=== PATIENT | male | born 1965 | race Caucasian/White ===

== ENCOUNTER → 2017-04-25 | Outpatient (CLI) | payer BC ==
[~2017-04-25] MED LIST: FLM4 PO; MULT-506 PO
== END | disposition home or self-care (01) ==
LOC: C.RDSM 09:00
PROVIDERS: ATTEND Orthopaedic Surgery Sports Medicine
DX: M25.562 Pain in left knee (principal)

== ENCOUNTER → 2017-04-30 | Outpatient (CLI) | payer BC ==
--- NOTE | 2017-04-30 15:10 | DIAGNOSTIC IMAGING REPORT ---
L LOWER EXT JOINT WITHOUT CLINICAL HISTORY: 51 years-old Male presenting with LEFT KNEE PAIN, locking sensation for 3 months, no known injury, medial and posterior knee pain. TECHNIQUE: Multisequence, multiplanar MR imaging of the left knee was performed without the use of intravenous contrast. IV contrast: None. COMPARISON: Plain radiographs from 04/25/2017. FINDINGS: Localizer images: Unremarkable. No bony edema. Articular cartilage intact. Anterior and posterior cruciate ligaments intact although there is redundancy of the posterior cruciate ligament. Linear intrasubstance signal within the posterior horn body junction of the medial meniscus which approaches the inferior articular surface consistent with tear, most likely degenerative type horizontal tear. The lateral meniscus demonstrates intrasubstance increased signal intensity without a focal tear. Medial collateral ligament intact. Lateral collateral ligament complex including the biceps femoris tendon, fibular collateral ligament, popliteus tendon, and iliotibial band intact. Quadriceps tendon intact. Minimal increased signal intensity within the origin of the patellar tendon without evidence of thickening or tear. This may be degenerative in etiology. Trace knee joint effusion. Popliteal cyst noted as well as fluid superficial to the lateral gastrocnemius. Normal muscle bulk and muscle signal intensity. IMPRESSION: 1. Degenerative type horizontal tear of the posterior horn body junction of the medial meniscus. 2. Fluid within the popliteal fossa associated with a popliteal cyst may indicate rupture. Electronically signed by: Ricardo Moser M.D. 04/30/2017 3:09 PM Dictated Date/Time: 04/30/2017 2:28 PM
== END | disposition home or self-care (01) ==
LOC: C.MRI 13:30
PROVIDERS: ATTEND Orthopaedic Surgery Sports Medicine
DX: M25.562 Pain in left knee (principal)

== ENCOUNTER → 2017-05-08 | Outpatient (CLI) | payer BC ==
[~2017-05-08] MED LIST changes: +MULTTAB58 PO
== END | disposition home or self-care (01) ==
LOC: C.CPL 16:53
PROVIDERS: ATTEND Physician Assistant
DX: M25.562 Pain in left knee (principal)

== ENCOUNTER → 2017-05-10 | Day surgery (SDC) | payer BC ==
[2017-05-08 09:17] VITALS: Ht 180.3 cm; Wt 95.5 kg
[~2017-05-10] VITALS: Ht 180.3 cm; Wt 95.5 kg
[~2017-05-10] MED LIST changes: +ATROPINE SULFATE 0.1 MG/ML 5ML SYR IV PRN; +BUPIVACAINE/EPINEPHRINE 0.5% MPF 1:200,000 30 ML VIAL ONE; +CEFAZOLIN 2000MG IV PUSH 10 ML IV SCH; +DEXAMETHASONE SOD INJ 4 MG/ML VIAL ONE; +EpHEDrine SULFATE INJ 50 MG/ML AMP IV PRN; +EpINEphrine HCL INJ 1 MG/ML 1ML SYRINGE ONE; +FENTANYL CITRATE INJ 50 MCG/1 ML 2 ML VIAL IV PRN; +FENTANYL CITRATE INJ 50 MCG/1 ML 2 ML VIAL ONE; -FLM4 PO; +HYDROmorphone INJ 1 MG/ML SYR IV PRN; +LACTATED RINGER'S 1000ML 1,000 ML IV SCH; +LIDOCAINE HCL 1% 20 ML VIAL ONE; +LIDOCAINE HCL 2% 2 ML VIAL (20MG/ML) ONE; +MIDAZOLAM HCL 1 MG/ML 2ML VIAL ONE; -MULT-506 PO; +MoRPHine SULFATE 2 MG/ML CARP IV PRN; +MoRPHine SULFATE 4 MG/ML 1 ML CARP\\VIAL IV PRN; +ONDANSETRON INJ 2 MG/ML 2 ML VIAL IV PRN; +ONDANSETRON INJ 2 MG/ML 2 ML VIAL ONE; +OXYCODONE/ACETAMINOPHEN 5-325 TAB PO PRN; +PROMETHAZINE HCL INJ 12.5 MG in SODIUM CHLORIDE 0.9% 50ML 50 ML IV PRN; +PROPOFOL IV EMULSION 10 MG/ML 20 ML VIAL IV ONE
--- NOTE | 2017-05-10 06:37 | History & Physical Bridge - [place] ---
H&P Re-Evaluation Bridge Note: I have examined the patient, reviewed the History & Physical and in the interval since the performance of the History & Physical I have noted the following changes of clinical significance: No changes noted
--- NOTE | 2017-05-10 08:16 | [facility] Operative Report ---
Operative Report Operative Date May 10, 2017. Pre-Operative Diagnosis Left knee medial meniscal tear with ruptured popliteal cyst Post-Operative Diagnosis Same as preop plus chondromalacia, lateral meniscus tear, and medial plica Procedure(s) Performed 1) Left Knee Arthroscopy, Chondroplasty: Trochlea & MFC with Partial Medial Meniscectomy. 2) Limited debridement: Medial Plicae & Anterior fat pad. 3) Partial Lateral Meniscectomy. 4) Exam Under Anesthesia Surgeon Dr. Maldonado Repair Cameraman Surgeon(s) None Estimated Blood Loss 2 mL Findings The left knee was examined under anesthesia. Range of motion was 0-130. Ligamentous examination exhibited: stable Sean, posterior drawer, varus and valgus stress at 0 & 30 degrees. ARTHROSCOPIC FINDINGS: There was significant synovitis in the fat pad. There was also a noted medial plica. 1) PATELLOFEMORAL JOINT: The articular cartilage of the Patella was intact and Trochlea had a 3 x 4 mm central area of grade 2 Outerbridge changes. 2) GUTTERS: No loose bodies. 3) MEDIAL COMPARTMENT: The articular cartilage of the femur had type II changes from 30-90 degrees and Tibia was intact. The medial meniscus had a complex degenerative tear at the apex as well as an undersurface posterior tear. 4) ACL/PCL: They were both visualized and probed to be intact. 5) LATERAL COMPARTMENT: The lateral compartment was then entered in a figure-of- four position. The femoral and tibial articular cartilage was normal. The lateral meniscus had a degenerative tear posteriorly to the apex. Fluids (cc crystalloids) 1300 Specimens None Drains n/a Anesthesia LMA Complication(s) None Disposition Recovery Room / PACU (Stable) Implants n/a Indications This is a 51-year-old male who has clinical and MRI findings consistent with meniscus tear. I recommended that a left knee arthroscopy be performed with meniscus repair vs debridement, possible chondroplasty versus microfracture. The patient understands the risks of surgery, which include but not limited to: bleeding, infection, re-operation, damage to nerves and arteries, continued knee pain, progression of OA, DVT, and a 2-5% risk of becoming worse after surgery. The patient understands all of these instructions and explanations, all of his questions have been satisfactorily addressed and the patient has elected to proceed. Informed consent was signed. Description of Procedure The patient was taken to the Operating Room and placed in the supine position after general anesthetic was administered. My initials and a multidisciplinary time-out were used to identify the left leg as the correct operative limb. Prior to the incision, 2 grams of intravenous Ancef was given. The left knee was then injected with 20cc of a 50:50 mix of 1% Lidocaine plain and 0.5% Bupivacaine with epinephrine in a sterile fashion using the superolateral portal. The left leg was then prepped and draped in a standard sterile fashion. The anterolateral, anteromedial, and superolateral portals were injected with the 50:50 mixture noted above, for a total of 10cc, in the standard fashion. An anterolateral arthroscopic portal was established with an 11-blade. Next, the arthroscope was introduced into the knee. A diagnostic arthroscopy commenced and both the superolateral and anteromedial portals were established under direct visualization using a spinal needle followed by an 11 blade in the standard fashion. The above findings were observed during the diagnostic arthroscopy. The synovitis and anterior fat pad were debrided as they were encounter with mechanical shaver and Coolcut. The medial plicae was excised with a combination of hand punches, mechanical shaver and Coolcut. The articular cartilage damage was debrided back to stable margins as they were encountered with mechanical shaver. The medial and lateral meniscus tears were evaluated and found to be irreparable and was debrided back to stable margin with hand punches, and mechanical shaver. The knee was copiously irrigated. The arthroscopic instruments were then removed. The portals were closed with 3-0 Prolene in a standard fashion. The wound was dressed with Xeroform gauze, sterile gauze, ABDs, sterile Webril, and a foot to thigh Scott bandage. The patient was then transferred to the Recovery Room in stable condition. The sponge and needle counts were correct. Post-op Instructions: The patient will be WBAT. The patient may remove the operative dressing on Post -Op Day #2 and apply Band-Aids to the wounds. The patient may shower in 72 hours and is to wear the HEATHER for 2 weeks on the operative limb. The patient is to use the pain medicine as needed and take the ASA for 2 weeks. The patient was also given a handout for home quad strengthening and seated self-assisted ROM exercises, which they may begin tomorrow. The patient was given a prescription for PT and is scheduled for an appointment later this week. The patient is to follow up with me in 10-15 days. I attest to the content of the Intraoperative Record and any orders documented therein. Any exceptions are noted below.
--- NOTE | 2017-05-10 08:18 | Discharge Instructions-SurgCtr ---
Discharge Instructions Date of Service May 10, 2017. Visit Reason for Visit: Left Knee Medial Meniscus Tear Discharge Discharge Diagnosis / Problem: Status post left knee arthroscopy with partial medial & lateral meniscectom Discharge Goals Goal(s): Decrease discomfort, Improve function, Increase independence Activity Recommendations Activity Limitations: per Instructions/Follow-up section May Resume Sexual Activity: when tolerated Shower/Bathe: may shower/bathe in 3 days Driving or Machine Use: Not while on narcotics Weightbearing Status: Left weightbearing (as tolerated) Anesthesia . Post Anesthesia Instructions: If you have had General Anesthesia or IV Sedation: * Do not drive today. * Resume driving when surgeon permits. * Do not make important decisions or sign legal documents today. * Call surgeon for: 1. Temperature elevations greater than 101 degrees F. 2. Uncontrollable pain. 3. Excessive bleeding. 4. Persistent nausea and vomiting. 5. Medication intolerance (nausea, vomiting or rash). * For nausea and vomiting use only clear liquids such as: tea, soda, bouillon until nausea subsides, then gradually increase diet as tolerated. * If you have any concerns or questions, call your surgeon's office. If physician is unavailable and it is an emergency, call 911 or go to the nearest emergency room. . Instructions / Follow-Up Instructions / Follow-Up Dr. Maldonado in 10-15 days. PT in 3-5 days. Diet Recommendations Home Diet: resume previous diet Procedures Procedures Performed: 1) Left Knee Arthroscopy, Chondroplasty: Trochlea & MFC with Partial Medial Meniscectomy. 2) Limited debridement: Medial Plicae & Anterior fat pad. 3) Partial Lateral Meniscectomy. 4) Exam Under Anesthesia Pending Studies Studies pending at discharge: no Work Instructions Return To Work: 1 week (Within) Medical Emergencies . Who to Call and When: Medical Emergencies: If at any time you feel your situation is an emergency, please call 911 immediately. . Non-Emergent Contact Non-Emergency issues call your: Surgeon Call Non-Emergent contact if: temperature is above 101.5, your pain is not controlled, wound has increased drainage, wound has increased redness . . "Provider Documentation" section prepared by Jesus Maldonado. .
[2017-05-10 08:58] VITALS: TEMP 36.3
[2017-05-10 09:44] VITALS: BP 124/76; PULSE 83; O2SAT 99
--- NOTE | 2017-05-10 10:06 | Anesthesia Progress Nt - [facility] ---
Anesthesia Post Op Note Date & Time May 10, 2017 at 10:06 Vital Signs Pain Intensity: 2 Vital Signs Past 12 Hours Date Time Temp Pulse Resp B/P (MAP) Pulse Ox O2 Delivery O2 Flow Rate FiO2 05/10/17 09:44 83 16 124/76 (92) 99 Room Air 05/10/17 08:58 36.3 90 18 125/77 (93) 96 Room Air 05/10/17 08:51 92 15 98 05/10/17 08:51 92 15 05/10/17 08:50 142/73 05/10/17 08:48 36.8 90 18 144/85 98 Room Air 05/10/17 08:46 92 16 99 05/10/17 08:46 95 17 99 05/10/17 08:45 144/85 05/10/17 08:41 91 15 100 05/10/17 08:41 91 15 05/10/17 08:40 134/80 05/10/17 08:36 92 13 100 05/10/17 08:36 92 13 05/10/17 08:35 140/76 05/10/17 08:31 96 20 100 05/10/17 08:31 98 20 05/10/17 08:30 140/71 05/10/17 08:29 100 17 05/10/17 08:29 100 17 100 05/10/17 08:25 132/71 05/10/17 08:24 81 23 100 05/10/17 08:24 81 23 05/10/17 08:20 128/68 05/10/17 08:19 80 13 125/65 100 05/10/17 08:19 37.0 90 16 125/65 100 Diffusion Mask 6 05/10/17 08:19 80 13 05/10/17 06:30 36.8 77 22 137/92 (107) 100 Room Air Notes Mental Status: alert / awake / arousable, participated in evaluation Pt Amnestic to Procedure: Yes Nausea / Vomiting: adequately controlled Pain: adequately controlled Airway Patency, RR, SpO2: stable & adequate BP & HR: stable & adequate Hydration State: stable & adequate Anesthetic Complications: no major complications apparent
== END | disposition home or self-care (01) ==
LOC: X.SURG 06:19
PROVIDERS: ATTEND Orthopaedic Surgery Sports Medicine
DX: M23.204 Derangement of unspecified medial meniscus due to old tear or injury, left knee (principal); M66.0 Rupture of popliteal cyst